=== PATIENT | male | born 1960 | race Caucasian/White ===

== ENCOUNTER → 2019-06-22 | Outpatient (CLI) | payer BC ==
--- NOTE | 2019-06-22 13:58 | Diagnostic Imaging Report ---
PROCEDURE: MR imaging of the brain without contrast. TECHNIQUE: Multiplanar, multisequence MR imaging of the brain was performed without contrast. INDICATION: Memory problems. COMPARISON: None. FINDINGS: No acute ischemia, mass, or hemorrhage. A small amount of scattered T2/FLAIR hyperintense signal is seen in the periventricular and subcortical white matter. The ventricles, cortical sulci, and basilar cisterns are symmetric and unremarkable. The sellar and suprasellar regions have a normal appearance. The brainstem and posterior fossa are unremarkable. The paranasal sinuses and mastoid air cells demonstrate normal signal characteristics. Bilateral lens implants are seen. The globes and orbits are symmetric and unremarkable. The scalp and calvarium have a normal appearance. IMPRESSION: 1. No acute ischemia, mass, or hemorrhage. 2. Scattered T2/FLAIR hyperintense signal in the periventricular and subcortical white matter. These findings may represent chronic microvascular disease and/or sequelae of migraine. Dictated by: Dictated on workstation # [id number]
== END ==
LOC: RAD 12:25
PROVIDERS: ATTEND Nurse Practitioner Family
DX: R41.3 Other amnesia (principal)
CPT/HCPCS: 70551

== ENCOUNTER → 2020-11-03 | Outpatient (CLI) | payer BC, OTHER ==
--- NOTE | 2020-11-03 12:35 | Diagnostic Imaging Report ---
PROCEDURE: US carotid duplex, bilateral. TECHNIQUE: Multiple Real-time grayscale images were obtained over the carotid arteries in various projections, bilaterally. Additional spectral analysis and color Doppler duplex images were also obtained. INDICATION: Forgetfulness. FINDINGS: There is minimal plaque identified in both carotid systems. The velocities are normal bilaterally. No velocity elevation or stenosis is seen. Both vertebral arteries show antegrade flow. IMPRESSION: No evidence of a hemodynamically significant stenosis. Parameters based on the consensus panel -Scale and Doppler ultrasound criteria published January 2003, Radiology, Volume 229. DOPPLER (peak systolic velocity M/S Right Left CCA .96 .96 ICA Proximal .67 .75 ICA Mid .34 .50 ICA Distal .63 .76 RATIO .70 .78 ECA .57 1.16 VERT .34 .26 Dictated by: Dictated on workstation # [id number]
--- NOTE | 2020-11-03 12:36 | Diagnostic Imaging Report ---
INDICATION: Left upper quadrant pain for 15 years. PROCEDURE: Ultrasound abdomen complete. TECHNIQUE: Multiple Real-time grayscale images were obtained of the abdomen in various projections. FINDINGS: The liver is enlarged at 19 cm. There is diffuse increased echogenicity to the liver, consistent with hepatic steatosis. No discrete liver mass is identified. The gallbladder is without stones or sludge. No wall thickening or biliary ductal dilatation is seen. The pancreas is unremarkable. The spleen is mildly enlarged at 16 cm. The aorta and IVC were obscured by bowel gas. The right kidney does contain an approximately 14 mm cyst in the lower pole. No calculus or hydronephrosis is seen. The left kidney is unremarkable. There is no ascites. IMPRESSION: 1. Splenomegaly. 2. Hepatic steatosis. 3. Right renal cyst. Dictated by: Dictated on workstation # [id number]
== END ==
LOC: RAD FS 09:33
PROVIDERS: ATTEND Internal Medicine Rheumatology
DX: K76.0 Fatty (change of) liver, not elsewhere classified (principal); N28.1 Cyst of kidney, acquired; R16.1 Splenomegaly, not elsewhere classified; R68.89 Other general symptoms and signs; R06.02 Shortness of breath
CPT/HCPCS: 76700; 93880

== ENCOUNTER → 2020-11-23 | Outpatient (CLI) | payer BC ==
[2020-11-23 11:21] VITALS: BP 115/77
== END ==
LOC: CARD 10:30
PROVIDERS: ATTEND Nurse Practitioner Family
DX: R06.02 Shortness of breath (principal); R68.89 Other general symptoms and signs
CPT/HCPCS: 93351

== ENCOUNTER 2020-12-12 06:19 | Outpatient (CLI) | payer BC ==
[~2020-12-12] VITALS: Ht 177.8 cm; Wt 104.1 kg
[2020-12-12] MEDS ORDERED: CYCL10TA9 PO (10:59)
[2020-12-12] MEDS ORDERED: PITA2TAB2 PO (10:59)
[2020-12-12] MEDS ORDERED: DOLU1TAB2 PO (10:59)
[2020-12-12] MEDS ORDERED: ALPR0.5T7 PO (10:59)
== END 2020-12-12 11:19 | disposition home or self-care (01) ==
LOC: PREOP 06:19
PROVIDERS: ATTEND Surgery
DX: Z01.818 Encounter for other preprocedural examination (principal)

== ENCOUNTER 2020-12-14 08:30 | Day surgery (SDC) | payer BC ==
[2020-12-14] VITALS (11 sets, daily range): BP systolic 114–149; BP diastolic 77–96
[~2020-12-14] VITALS: Ht 177.8 cm; Wt 104.1 kg
[~2020-12-14 08:30] MED LIST: ALPR0.5T7 PO; CYCL10TA9 PO; DOLU1TAB2 PO; PITA2TAB2 PO
[2020-12-14] MEDS ORDERED: LACTATED RINGERS 1,000 ML IV PRN (08:45)
[2020-12-14] MEDS ORDERED: ceFAZolin 2 GM IV Premixed 50 ML IV ONE (08:45)
[2020-12-14] MEDS ORDERED: LIDOCAINE/EPI 1%-1:100,000 (XYLOCAINE) 20ML ONE (08:55)
[2020-12-14] MEDS ORDERED: LIDOCAINE PF 2% 5 ML (XYLOCAINE) VIAL ONE (09:36)
[2020-12-14] MEDS ORDERED: fentaNYL INJ 100 MCG/2 ML AMP ONE (09:36)
[2020-12-14] MEDS ORDERED: proPOfol 200 MG/20 ML (DIPRIVAN) VIAL IV ONE (09:36)
[2020-12-14] MEDS ORDERED: MIDAZOLAM 2 MG/2 ML (VERSED) VIAL ONE (09:36)
[2020-12-14] MEDS ORDERED: ROCURONIUM 10 MG/ML 5 ML SYRINGE IV ONE (09:36)
[2020-12-14] MEDS ORDERED: ONDANSETRON 4 MG/2 ML (SDV) Z0FRAN ONE (09:36)
[2020-12-14] MEDS ORDERED: SEVOFLURANE (ULTANE) 15 ML INHAL SOLN ONE (09:36)
--- NOTE | 2020-12-14 09:36 | Progress Note-Pre Operative ---
Pre-Operative Progress Note H&P Reviewed The H&P was reviewed, patient examined and no changes noted. Time Seen by Provider: 09:34 Date H&P Reviewed: Dec 14, 2020 Time H&P Reviewed: 09:34 Pre-Operative Diagnosis: Basal Cell CA mid-back STEVE BONILLA DO Dec 14, 2020 09:36
[2020-12-14] MEDS ORDERED: ACHD5005 PO (10:45)
--- NOTE | 2020-12-14 10:45 | Progress Note-Post Operative ---
Post-Operative Progess Note Surgeon (s)/Trimmer Climber (s) Surgeon STEVE BONILLA DO Trimmer Climber: NEELIMA Leung Pre-Operative Diagnosis Basal Cell CA mid-back Post-Operative Diagnosis same pending path Procedure & Operative Findings Date of Procedure 12/14/20 Procedure Performed/Findings Wide excision of Basal Cell CA Anesthesia Type GET Estimated Blood Loss Estimated blood loss (mL): less than 10ml Specimens/Packing Specimens Removed back mass STEVE BONILLA DO Dec 14, 2020 10:45
--- NOTE | 2020-12-14 10:47 | Discharge Inst-Surgical ---
Discharge Inst-Surgical Depart Medication/Instructions New, Converted or Re-Newed RX: Transmitted to Pharmacy Patient Instructions Follow up Appt: Make appointment for 1 week. [phone] Instructions: No lifting greater than 20 pounds. No strenuous activity. May shower in 24 hours, no tub bath or soaking. Use incentive spirometer at home as directed. No Smoking Skin/Wound Care: May remove bandages in am. You need to leave the Dermabond on incision it will fall off on it's own. Symptoms to Report: Appetite Changes, Extremity Discoloration, Numbness/Tingling, Swelling Increased, Bleeding Excessive, Eyesight Changes, Pain Increased, Urine Color Change, Constipation(Persistent), Fever over 101 degree F, Pain/Pressure in chest, Urinating Difficulty, Cough Up/Vomit Blood, Heart Beat Irreg/Pounding, Pain/Pressure in jaw, Cramps in feet or legs, Lightheadedness, Pain/Pressure in shoulder, Diarrhea(Persistent), Memory Changes Suddenly, Questions/Concerns, Weight gain consecutive days, Dizziness/Fainting, Nausea/Vomiting, Shortness of Breath, Weight gain over 2 pounds If questions or concerns contact your physician Or seek help at emergency department. Activity Activity as Tolerated: Yes Activity Instructions: Avoid Stress to Incision Driving Instructions: No Driving/Refer to Dr. Silvestre Discharge Diet: No Restrictions Diet After 24 Hours: Clear Liquid if Nauseous If Any Problems/Questions/Issu: Contact Your Physician Skin/Wound Care Infection Signs and Symptoms: Increased Redness, Foul Odor of Wound, Increased Drainage, Skin Itchy or Has a Rash Bathing Instructions: Shower Stitches/Leanna/Dermabond Dis: Care of STEVE Cerna DO Dec 14, 2020 10:47
--- NOTE | 2020-12-14 10:50 | Anesthesia-General Post-Op ---
General Patient Condition Mental Status/LOC: Same as Preop Cardiovascular: Satisfactory Nausea/Vomiting: Absent Respiratory: Satisfactory Pain: Controlled Complications: Absent Post Op Complications Complications None Follow Up Care/Instructions Patient Instructions None needed. Anesthesia/Patient Condition Patient Condition Patient is doing well, no complaints, stable vital signs, no apparent adverse anesthesia problems. No complications reported per nursing. FELIPA SHELTON CRNA Dec 14, 2020 10:50
[2020-12-14] MEDS ORDERED: ONDANSETRON 4 MG/2 ML (SDV) Z0FRAN IVP PRN (11:00)
[2020-12-14] MEDS ORDERED: morphine INJ 10 MG/ML 1ML (SYR OR VIAL) IVP ONE (11:00)
[2020-12-14] MEDS ORDERED: MEPERIDINE (DEMEROL) INJ 50 MG/ML IVP ONE (11:00)
--- NOTE | 2020-12-14 18:43 | OPERATIVE REPORT ---
DATE OF SERVICE: 12/14/2020 PREOPERATIVE DIAGNOSIS: Basal cell carcinoma of back, incompletely excised. POSTOPERATIVE DIAGNOSES: Basal cell carcinoma of back, incompletely excised, pending pathology. PROCEDURE PERFORMED: Wide local excision of basal cell cancer, 9.6 cm x 3 cm elliptical incision. SURGEON: Reji Galindo DO. AUTOMOTIVE ELECTRICAL HELPER: Judy Suazo MS3. ANESTHESIA: General endotracheal tube. SPECIMEN: Skin from the back, 9.6 x 3 cm incision. BLOOD LOSS: Less than 10 mL. FLUIDS: Per anesthesia. POSTOPERATIVE CONDITION: Stable. INDICATION FOR PROCEDURE: The patient is a 60-year-old male, who had a mass that came back as basal cell carcinoma, which showed positive margins deep and in the 6 and 9 o'clock position, need to get a wide local excision. PROCEDURE NOTE: After informed consent was obtained, the patient was brought to the operating room. He was intubated and placed on table in prone position. He was then sterilely prepped and draped in a normal fashion. I used skin marker to kristian the elliptical incision going around the previous incision. This measured 9.6 x 3 cm. I infiltrated the skin with local and then made an incision with #15 blade, carried down through the skin into subcutaneous tissue, then deepened down to the subcutaneous tissue with Bovie electrocautery, going down about at least 0.5 cm below the previous spot and removing this en bloc, passed this off the table, suturing a short superior stitch and a long lateral or 9 o'clock position stitch, had to undermine about 1.5 cm under each side of the incision to be able to bring this incision together. Once the undermining was done with a Bovie electrocautery, hemostasis was obtained with Bovie electrocautery. Copiously irrigated with normal saline and then closed this with 2-0 nylon five vertical mattress sutures and three interrupted simple sutures. Area was cleaned and dried, pressure dressing placed. The patient tolerated the procedure. Sponge, instrument and needle count correct at the end of the case. Job ID: [id number] DocumentID: [id number] Dictated Date: 12/14/2020 17:09:48 Electronic Health Records Specialist Date: 12/14/2020 18:41:28 Dictated By: REJI GALINDO DO
== END 2020-12-14 13:33 | disposition home or self-care (01) ==
LOC: SDC 08:30
PROVIDERS: ATTEND Surgery
DX: C44.519 Basal cell carcinoma of skin of other part of trunk (principal); E66.9 Obesity, unspecified; J30.9 Allergic rhinitis, unspecified; I10 Essential (primary) hypertension; E78.00 Pure hypercholesterolemia, unspecified; F41.9 Anxiety disorder, unspecified; Z21 Asymptomatic human immunodeficiency virus [HIV] infection status; Z68.32 Body mass index [BMI] 32.0-32.9, adult; Z79.899 Other long term (current) drug therapy; Z87.891 Personal history of nicotine dependence; Z80.9 Family history of malignant neoplasm, unspecified
CPT/HCPCS: 87081

== ENCOUNTER → 2021-03-01 | Outpatient (CLI) | payer BC ==
[~2021-03-01] MED LIST changes: +ACHD5005 PO; +CATHETER FLUSH 10 ML SYR IV PRN; +CYCL10TA25 PO; -CYCL10TA9 PO; +HOLD METFORMIN - RECEIVED CONTRAST 20 ML VIAL IV SCH; +IOHEXOL 350 MG/ML 100 ML (OMNIPAQUE 350) VIAL IV ONE; +NS 100 ML (IVPB) BAG IV ONE
[2021-03-01 09:17] LABS: CREATININE SERUM 1.13 MG/DL (0.60-1.30)
--- NOTE | 2021-03-01 10:25 | Diagnostic Imaging Report ---
PROCEDURE: CT abdomen and pelvis with contrast. TECHNIQUE: Multiple contiguous axial images were obtained through the abdomen and pelvis after administration of intravenous contrast. Auto Exposure Controls were utilized during the CT exam to meet ALARA standards for radiation dose reduction. All CT scans use one or more of the following dose optimizing techniques: automated exposure control, MA and/or KvP adjustment based on patient size and exam type or iterative reconstruction. INDICATION: Left abdominal pain. FINDINGS: There is low-density throughout the liver. No focal hepatic or splenic lesion is identified. Gallbladder is distended without evidence of inflammation. There is no evidence of pancreatic, adrenal gland or focal renal abnormality. There is no evidence of localized inflammation within the abdomen or pelvis. There is no bowel obstruction. There is partial opacification of the colon, however the colon is incompletely distended which limits evaluation. There is no free fluid in the abdomen or pelvis. Disc bulging and central protrusions are noted at L4-L5 and L5-S1. Unopacified bladder is unremarkable. IMPRESSION: Hepatic steatosis without acute abnormality identified. Note is made of lower lumbar spondylosis. Dictated by: Dictated on workstation # [id number]
== END ==
LOC: RAD FS 08:25
PROVIDERS: ATTEND Internal Medicine Rheumatology
DX: R10.12 Left upper quadrant pain (principal)
CPT/HCPCS: 36415; 74177; 82565; 84520